=== PATIENT | female | born 1940 | race Caucasian/White ===

== ENCOUNTER 2018-10-01 10:13 | Emergency (ER) | payer BC, MEDICARE, SELFPAY ==
[2018-10-01 10:14] VITALS: BP 192/110; PULSE 74; RESP 16; TEMP 36.8; O2SAT 98; BMI 27.4
--- NOTE | 2018-10-01 10:31 | RAD_ITS ---
STUDY: X-RAY - LEFT SHOULDER REASON FOR EXAM: Female, 78 years old. Pain following a fall. TECHNIQUE: 2 view(s) of the shoulder. COMPARISON: None. FINDINGS: Inferior subluxation of the glenohumeral joint most likely secondary to a joint effusion. Normal acromioclavicular joint. Normal acromion. Transverse fracture through the surgical neck of the humerus with extension to the greater tuberosity. Soft tissue swelling. Normal visualized pulmonary apex. RAD/Shoulder min 2 Views IMPRESSION: Transverse fracture through the surgical neck of the humerus with extension to the greater tuberosity. Inferior displacement of the glenohumeral joint most likely secondary to a joint effusion. Electronically Signed: Los Ramirez, at 11:25 EDT , Service support ,
--- NOTE | 2018-10-01 10:57 | ED.VISSUMM ---
- ER Visit Summary Date of Service: 10/01/18 Chief Complaint: Shoulder injury History of Present Illness: The patient is a 78 F who sustained a mechanical fall about 24 hours ago. She landed on her left shoulder. She has not been able to move the shoulder since. She reports swelling and pain to the area. Denies any other injuries or pain. She says she is not on blood thinners. Denies any weakness or numbness. Physical Examination: Afebrile and vital signs are unremarkable except for her blood pressure which is high, 192/110. Head and neck are atraumatic. Neck is nontender. HEENT exam unremarkable. Left shoulder diffusely swollen with bruising noted, but skin is intact. Exquisitely tender diffusely to the left shoulder. Neurovascularly intact distally. Chest is nontender. Heart sounds regular. Lungs clear. The remainder of her exam is unremarkable. Test Results: X-rays of the left shoulder are pending. Emergency Department Course and Treatment: I was suspicious for fracture and/or dislocation. X-rays ordered. IV placed. Patient n.p.o. and placed on a monitor. Patient treated with fentanyl while awaiting results. Patient has a comminuted humeral head fracture. This was discussed with Dr. Ojeda. He advised CT, sling, and follow-up in his office on . Patient was given the number to call and make an appointment for . She was given a prescription for Percocet as needed. Treatment Plan: As above Disposition: Discharge Impression: 1. Left humeral head fracture This note was generated with [employer] dictation software. It may contain incorrect words, spelling, and punctuation that were not noted in review of the chart prior to signing
[2018-10-01] MEDS: fentaNYL 100 MCG/2 ML Ampul 50 MCG IV (11:24)
[2018-10-01 12:18] VITALS: BP 191/83; PULSE 72; RESP 13
--- NOTE | 2018-10-01 12:36 | ED.RN ---
PT INFORMED OF WAIT FOR ORTHO TO CALL BACK. PT WAS RESTING IN BED AND MALE VISITOR AT BEDSIDE. NO FURTHER NEEDS OR QUESTIONS. Yesika SPAIN RN [id number]
--- NOTE | 2018-10-01 12:48 | CT_ITS ---
STUDY: CT LEFT UPPER EXTREMITY / HUMERUS REASON FOR EXAM: Female, 78 years old. Pain following a fall. RADIATION DOSAGE (If Supplied By Facility): CTDIvol = ( 24.58 ) mGy, DLP = ( 413.10 ) mGycm TECHNIQUE: High resolution transaxial imaging was performed without the administration of intravenous contrast material. Multiplanar coronal and sagittal images were reformatted. Individualized dose optimization techniques were used for this CT. COMPARISON: None. FINDINGS: Normal subcutis adipose space. There is no demonstrated solid, cystic, or lipomatous mass within the subcutaneous adipose space. Normal visualized muscles. Normal visualized neurovascular bundles. There is evidence of a comminuted impacted fracture of the surgical neck of the humerus with extension to the greater tuberosity. The glenohumeral joint is unremarkable. Degenerative changes of the acromioclavicular joint. CT/Extremity Upper without Contra IMPRESSION: Impacted comminuted nondisplaced surgical neck fracture of the proximal left humerus with extension to the greater tuberosity. Electronically Signed: Los Ramirez, at 13:46 EDT , Service support ,
--- NOTE | 2018-10-01 12:57 | ED.DEP ---
ED Disposition - Plan for ED Patient: Instructions: ED Fx Shoulder Prescriptions: Oxycodone HCl/Acetaminophen [Percocet 5/325] 1 tab PO Q6H PRN PRN 3 Days #12 tab PRN Reason: Pain Referrals: Phillip Ojeda MD [STAFF PHYSICIAN] - Additional Instructions: Call Dr. Ojeda's office today to make an appointment to be seen on
[2018-10-01 13:19] VITALS: BP 190/82; PULSE 67
== END 2018-10-01 13:54 | disposition home or self-care (01) ==
LOC: ED 11:44
PROVIDERS: Emergency Provider Emergency Medicine
DX: S42.215A Unspecified nondisplaced fracture of surgical neck of left humerus, initial encounter for closed fracture (principal); W19.XXXA Unspecified fall, initial encounter; Y93.9 Activity, unspecified; Y92.9 Unspecified place or not applicable; Y99.9 Unspecified external cause status
CPT/HCPCS: 73030; 73200; 99285; A4216